=== PATIENT | female | born 1995 | race African-American/Black ===

== ENCOUNTER 2017-05-09 04:28 | Inpatient (IN) ==
[2017-05-09] MEDS ORDERED: BUTORPHANOL 2 MG/ML VIAL IV PRN (04:53)
[2017-05-09] MEDS ORDERED: ONDANSETRON 4 MG/2 ML VIAL IV PRN ×2 (04:53→17:19)
[2017-05-09] MEDS ORDERED: LACTATED RINGERS 1,000 ML IV SCH ×2 (05:00→17:30)
[2017-05-09] MEDS ORDERED: CITRIC ACID/SODIUM CITRATE 30 ML UDCUP PO ONE (05:44)
[2017-05-09] MEDS ORDERED: FAMOTIDINE 20 MG/2 ML VIAL IV ONE (05:44)
[2017-05-09] MEDS ORDERED: LACTATED RINGERS 1,000 ML IV ONE (05:44)
[2017-05-09] MEDS ORDERED: ePHEDrine 50 MG/ML AMP IV PRN (05:44)
[2017-05-09] MEDS ORDERED: ONDANSETRON 4 MG/2 ML VIAL IV ONE (05:44)
[2017-05-09] MEDS ORDERED: PROMETHAZINE 25 MG/1 ML VIAL IM ONE (05:44)
[2017-05-09] MEDS ORDERED: hydrOXYzine HCL 25 MG/1 ML VIAL IM PRN (05:44)
[2017-05-09] MEDS ORDERED: diphenhydrAMINE 50 MG/1 ML VIAL IV PRN ×2 (05:44)
[2017-05-09 05:45] LABS: Basophils % 0.2 % (0.0-0.8); Eosinophils # 0.1 10*3/uL (0.0-0.87); Eosinophils % 1.3 % (0.00-10.9); Hematocrit 28.9 VOL% (35.7-47.0); Hemoglobin 9.3 GM/DL (12.0-16.0); Immature Granulocytes % 0.6 %; Immature Granulocytes Absolute 0.05 #; Lymphocytes # 2.4 10*3/uL (1.4-4.0); Lymphocytes % 28.8 % (21.3-54.2); Mean Corpuscular HGB Conc 32.2 GM/DL (32-36); Mean Corpuscular Hemoglobin 26 PG (27-34); Mean Corpuscular Volume 81.9 FL (87-102); Mean Platelet Volume 10.5 FL (9.6-12.0); Monocytes # 0.4 10*3/uL (0.11-0.8); Monocytes % 4.9 % (1.7-12.7); Neutrophils # 5.4 10*3/uL (1.4-7.4); Neutrophils % 64.2 % (38.7-73.9); Platelet Count 285 T/CUMM (130-400); Red Blood Count 3.53 MC/CUMM (3.8-5.5); Red Cell Distribution Width 14.4 % (9.3-17.3); White Blood Count 8.4 T/CUMM (4-12)
[2017-05-09] MEDS ORDERED: fentaNYL 2 MCG/ROPIV 0.2% EPID 150 ML EPIDURAL SCH (06:00)
[2017-05-09] MEDS ORDERED: METHYLERGONOVINE 0.2 MG/1 ML AMP ONE (07:26)
[2017-05-09] MEDS ORDERED: miSOPROStol 200 MCG TABLET ONE (09:31)
[2017-05-09] MEDS ORDERED: LIDOCAINE 1% 50 ML VIAL ONE (09:31)
[2017-05-09 10:03] LABS: Cord Arterial Blood HCO3 15.4 MMOL/L
[2017-05-09 10:05] LABS: Cord Venous Blood HCO3 18.6 MMOL/L; Cord Venous Blood PCO2 59.2 MMHG; Cord Venous Blood PO2 16.2
[2017-05-09] MEDS: OXYTOCIN/LR 20 UNIT/1,000 ML BAG IV SCH ×2 (13:08→13:10)
[2017-05-09] MEDS ORDERED: IBUPROFEN 800 MG TABLET PO PRN ×2 (14:11→17:19)
[2017-05-09] MEDS ORDERED: ACETAMINOPHEN/CODEINE 300-30 MG TABLET PO PRN (14:11)
[2017-05-09] MEDS ORDERED: ACETAMINOPHEN 325 MG TABLET PO PRN (17:19)
[2017-05-09] MEDS ORDERED: BISACODYL 10 MG SUPP RECTAL PRN (17:19)
[2017-05-09] MEDS ORDERED: MAGNESIUM HYDROXIDE SUSP 30 ML UDCUP PO PRN (17:19)
[2017-05-09] MEDS ORDERED: BENZOCAINE 20%/MENTHOL 0.5% SPRAY 56 GM CAN TOP PRN (19:43)
[2017-05-09] MEDS: DOCUSATE SODIUM 100 MG CAPSULE PO SCH (21:28)
[2017-05-10 05:08] LABS: Basophils % 0.1 % (0.0-0.8); Eosinophils # 0.2 10*3/uL (0.0-0.87); Hematocrit 27.9 VOL% (35.7-47.0); Hemoglobin 9.1 GM/DL (12.0-16.0); Immature Granulocytes % 0.2 %; Immature Granulocytes Absolute 0.02 #; Lymphocytes # 2.5 10*3/uL (1.4-4.0); Lymphocytes % 28.9 % (21.3-54.2); Mean Corpuscular HGB Conc 32.6 GM/DL (32-36); Mean Corpuscular Hemoglobin 27 PG (27-34); Mean Corpuscular Volume 82.3 FL (87-102); Mean Platelet Volume 10.3 FL (9.6-12.0); Monocytes # 0.3 10*3/uL (0.11-0.8); Monocytes % 3.8 % (1.7-12.7); Neutrophils # 5.7 10*3/uL (1.4-7.4); Platelet Count 249 T/CUMM (130-400); Red Blood Count 3.39 MC/CUMM (3.8-5.5); Red Cell Distribution Width 14.5 % (9.3-17.3); White Blood Count 8.7 T/CUMM (4-12)
[2017-05-10] MEDS: DOCUSATE SODIUM 100 MG CAPSULE PO SCH ×2 (09:46→20:08)
[2017-05-11] MEDS: DOCUSATE SODIUM 100 MG CAPSULE PO SCH (08:19)
[2017-05-11] MEDS ORDERED: DIPH/TET/ACEL PERT BOOSTER VACCINE 0.5 ML VIAL IM ONE (09:26)
[2017-05-11] MEDS ORDERED: INFLUENZA VIRUS VACCINE 0.5 ML SYRINGE IM ONE (09:26)
[2017-05-11 10:12] VITALS: BP 126/73
== END 2017-05-11 10:45 | disposition home or self-care (01) | DRG 560 ==
LOC: N.LDOUT 04:28 → N.LD 04:31 → N.OB 13:15
PROVIDERS: ADMIT Obstetrics & Gynecology; ATTEND Obstetrics & Gynecology

== ENCOUNTER 2018-10-11 06:21 | Inpatient (IN) ==
[2018-10-11] MEDS ORDERED: FAMOTIDINE 20 MG/2 ML VIAL IV ONE (06:46)
[2018-10-11] MEDS ORDERED: ACETAMINOPHEN 325 MG TABLET PO PRN (06:46)
[2018-10-11] MEDS ORDERED: LACTATED RINGERS 1,000 ML IV ONE (06:46)
[2018-10-11] MEDS ORDERED: ONDANSETRON 4 MG/2 ML VIAL IV PRN (06:46)
[2018-10-11] MEDS ORDERED: diphenhydrAMINE 50 MG/1 ML VIAL IV PRN (06:46)
[2018-10-11] MEDS ORDERED: CITRIC ACID/SODIUM CITRATE 30 ML UDCUP PO ONE (06:46)
[2018-10-11] MEDS ORDERED: NALOXONE 0.4 MG/ML VIAL IV PRN (06:46)
[2018-10-11] MEDS ORDERED: LACTATED RINGERS 500 ML IV PRN (06:46)
[2018-10-11] MEDS ORDERED: MEPERIDINE 50 MG/1 ML VIAL IV PRN (06:46)
[2018-10-11] MEDS ORDERED: BUTORPHANOL 2 MG/ML VIAL IV PRN (06:46)
[2018-10-11] MEDS ORDERED: LACTATED RINGERS 250 ML IV PRN (06:46)
[2018-10-11] MEDS ORDERED: ePHEDrine 50 MG/ML AMP IV PRN (06:46)
[2018-10-11] MEDS ORDERED: AMPICILLIN INJ 2,000 MG in SODIUM CHLORIDE 0.9% 100 ML IV ONE (06:51)
[2018-10-11] MEDS ORDERED: OXYTOCIN/LR 20 UNIT/1,000 ML BAG IV SCH (07:00)
[2018-10-11] MEDS ORDERED: LACTATED RINGERS 1,000 ML IV SCH ×2 (07:00)
[2018-10-11] MEDS ORDERED: fentaNYL 2 MCG/ROPIV 0.2% EPID 100 ML EPIDURAL SCH (07:00)
[2018-10-11 07:15] LABS: Basophils % 0.1 % (0.0-0.8); Eosinophils # 0.1 10*3/uL (0.0-0.87); Eosinophils % 0.6 % (0.00-10.9); Hematocrit 27.5 VOL% (35.7-47.0); Hemoglobin 8.2 GM/DL (12.0-16.0); Immature Granulocytes % 0.4 %; Immature Granulocytes Absolute 0.03 #; Lymphocytes # 1.8 10*3/uL (1.4-4.0); Mean Corpuscular HGB Conc 29.8 GM/DL (32-36); Mean Corpuscular Volume 80.6 FL (87-102); Neutrophils % 71.9 % (38.7-73.9); Platelet Count 298 T/CUMM (130-400); Red Blood Count 3.41 MC/CUMM (3.8-5.5); White Blood Count 8.4 T/CUMM (4-12)
[2018-10-11] MEDS ORDERED: miSOPROStol 200 MCG TABLET ONE (07:23)
[2018-10-11] MEDS ORDERED: LIDOCAINE 1% 50 ML VIAL ONE (07:23)
[2018-10-11 07:24] LABS: INR 0.9
[2018-10-11 07:44] LABS: Albumin 2.6 G/DL (3.4-5.0); Bilirubin,Total 0.4 MG/DL (0.2-1.0); Calcium 8.6 MG/DL (8.5-10.1); Osmolality,Calculated 270.7 MOS/KG (273-304); Total Protein 7.2 G/DL (6.4-8.3); Uric Acid 3.2 MG/DL (2.6-6.0)
[2018-10-11 08:29] LABS: Cord Venous Blood HCO3 22.5 MMOL/L; Cord Venous Blood PO2 31.4
[2018-10-11] MEDS ORDERED: ACETAMINOPHEN/CODEINE 300-30 MG TABLET PO PRN (11:44)
[2018-10-11] MEDS ORDERED: BENZOCAINE 20%/MENTHOL 0.5% SPRAY 56 GM CAN TOP PRN (11:44)
[2018-10-11] MEDS ORDERED: LANOLIN 50% CREAM 0.3 OZ TUBE TOP PRN (11:44)
[2018-10-11] MEDS ORDERED: BISACODYL 10 MG SUPP RECTAL PRN (11:44)
[2018-10-11] MEDS ORDERED: RHO(D) IMMUNE GLOBULIN 300 MCG SYRINGE IM ONE (11:44)
[2018-10-11] MEDS ORDERED: HYDROCORTISONE 2.5% RECTAL CREAM 30 GM TUBE TOP PRN (11:44)
[2018-10-11] MEDS ORDERED: MEASLES/MUMPS/RUBELLA VACCINE 0.5 ML VIAL SUBCUT ONE (11:44)
[2018-10-11] MEDS ORDERED: WITCH HAZEL PADS 100/JAR TOP PRN (11:44)
[2018-10-11] MEDS ORDERED: oxyCODONE/ACETAMINOPHEN 5-325 MG TABLET PO PRN ×2 (11:44)
[2018-10-11] MEDS ORDERED: DIPH/TET/ACEL PERT BOOSTER VACCINE 0.5 ML VIAL IM ONE (11:44)
[2018-10-11] MEDS: IBUPROFEN 800 MG TABLET PO PRN ×2 (14:31→20:03)
[2018-10-11] MEDS: DOCUSATE SODIUM 100 MG CAPSULE PO SCH (20:03)
[2018-10-12 02:11] LABS: Basophils % 0.2 % (0.0-0.8); Eosinophils # 0.1 10*3/uL (0.0-0.87); Eosinophils % 0.6 % (0.00-10.9); Hematocrit 25.7 VOL% (35.7-47.0); Hemoglobin 7.5 GM/DL (12.0-16.0); Immature Granulocytes % 0.4 %; Immature Granulocytes Absolute 0.05 #; Lymphocytes % 25.6 % (21.3-54.2); Mean Corpuscular HGB Conc 29.2 GM/DL (32-36); Mean Corpuscular Volume 81.3 FL (87-102); Mean Platelet Volume 10.5 FL (9.6-12.0); Monocytes % 4.1 % (1.7-12.7); Neutrophils % 69.1 % (38.7-73.9); Platelet Count 240 T/CUMM (130-400); Red Blood Count 3.16 MC/CUMM (3.8-5.5); Red Cell Distribution Width 15.9 % (9.3-17.3); White Blood Count 11.6 T/CUMM (4-12)
[2018-10-12] MEDS: IBUPROFEN 800 MG TABLET PO PRN (04:05)
[2018-10-12] MEDS: DOCUSATE SODIUM 100 MG CAPSULE PO SCH ×3 (09:41→19:59)
[2018-10-12] MEDS ORDERED: FERROUS SULFATE 325 MG TABLET PO ONE (09:45)
[2018-10-12] MEDS: FERROUS SULFATE 325 MG TABLET PO SCH ×2 (16:36→19:59)
[2018-10-13] MEDS: FERROUS SULFATE 325 MG TABLET PO SCH (10:27)
[2018-10-13] MEDS: DOCUSATE SODIUM 100 MG CAPSULE PO SCH (10:27)
[2018-10-13 13:09] VITALS: BP 132/86
== END 2018-10-13 13:40 | disposition home or self-care (01) | DRG 560 ==
LOC: N.LDOUT 06:21 → N.LD 06:25 → N.OB 11:06
PROVIDERS: ADMIT Obstetrics & Gynecology; ATTEND Obstetrics & Gynecology